=== PATIENT | female | born 1935 | race African-American/Black ===

== ENCOUNTER 2017-09-17 15:22 | Inpatient (IN) | payer MEDICARE, BC, OTHER ==
[~2017-09-17] VITALS: Ht 162.6 cm; Wt 65.8 kg
[~2017-09-17 15:22] MED LIST: AMLO1CAP58 PO; ASPI-1159 PO; ATEN50TA PO; CLOP75TA33 PO; CYAN250010 PO; DOCU-150 PO; ERGO400C PO; FERR-43 PO; GABA-531 PO; OMEP20CA10 PO; TRAM50TA3 PO
[2017-09-17 17:15] LABS: BASOPHILS % 0.6 % (0.0-2.0); EOSINOPHILS % 2.2 % (0.0-5.0); HEMATOCRIT. 37.9 % (36.0-48.0); HEMOGLOBIN. 12.7 g/dL (12.0-16.0); LYMPHOCYTES % 34.2 % (20.0-50.0); MEAN CORPUSCULAR HEMOGLOBIN 24.7 pg (28.0-32.0); MEAN CORPUSCULAR VOLUME 73.7 fL (81.0-99.0); MEAN PLATELET VOLUME 9.4 fl (7.4-10.4); MONOCYTES % 12.8 % (2.0-8.0); NEUTROPHILS % 50.2 % (40.0-76.0); PLATELET 215 x1000/uL (130-400); RED BLOOD CELL COUNT 5.14 mill/uL (4.2-5.4); RED CELL DISTRIBUTION WIDTH 15.4 % (11.6-14.6)
[2017-09-17 17:17] LABS: CLARITY URINE CLEAR (CLEAR); COLOR URINE YELLOW (YELLOW); GLUCOSE URINE NEGATIVE (NEGATIVE); KETONES URINE NEGATIVE (NEGATIVE); LEUKOCYTE ESTERASE URINE NEGATIVE (NEGATIVE); NITRITE URINE NEGATIVE (NEGATIVE); OCCULT BLOOD URINE NEGATIVE (NEGATIVE); PROTEIN URINE NEGATIVE (NEGATIVE); SPECIFIC GRAVITY URINE 1.009 (1.005-1.030); UROBILINOGEN URINE 0.2 E.U./dL (0.2-1.0)
[2017-09-17 17:20] LABS: PROTHROMBIN TIME 10.7 sec (9.4-11.6)
[2017-09-17 17:23] LABS: AMMONIA 18 uMol/L (<32)
[2017-09-17 17:24] LABS: CHLORIDE 88 mEq/L (98-107)
[2017-09-17 17:32] LABS: CARBON DIOXIDE 29 mEq/L (21-32); CREATINE KINASE 79 IU/L (26-192); TROPONIN I < 0.02 ng/mL (0.00-0.04)
[2017-09-17] MEDS ORDERED: SODIUM CHLORIDE 0.9% 250 ML IV ONE (19:34)
[2017-09-17] MEDS ORDERED: ONDANSETRON HCL 4MG/2ML VIAL IV ONE (19:45)
[2017-09-17] MEDS ORDERED: POTASSIUM CHLORIDE 20MEQ TABLET SR PO ONE (19:45)
[2017-09-17] MEDS ORDERED: CLONIDINE 0.2MG TABLET PO ONE (19:45)
[2017-09-17 22:00] VITALS: BP 179/96
[2017-09-17] MEDS ORDERED: MAGNESIUM/ALUMINUM HYDROXIDE/SIMETHICONE 30ML UDC PO PRN (22:00)
[2017-09-17] MEDS ORDERED: ACETAMINOPHEN 650MG/20.3ML UDC GT PRN (22:00)
[2017-09-17] MEDS ORDERED: DOCUSATE SODIUM 100MG CAPSULE PO PRN (22:00)
[2017-09-17] MEDS ORDERED: ONDANSETRON HCL 4MG/2ML VIAL IV PRN (22:00)
[2017-09-17 22:30] VITALS: BP 117/75
[2017-09-17] MEDS ORDERED: TRAV2.5D EACHEYE (22:58)
[2017-09-17] MEDS: SODIUM CHLORIDE 0.9% INJ 3ML FLUSH IVF SCH (23:04)
[2017-09-18] VITALS: BP 93/58
[2017-09-18 04:00] VITALS: BP 97/59
[2017-09-18] MEDS: SODIUM CHLORIDE 0.9% INJ 3ML FLUSH IVF SCH ×3 (05:46→20:38)
[2017-09-18 07:13] LABS: CHLORIDE 95 mEq/L (98-107)
[2017-09-18 07:29] LABS: CARBON DIOXIDE 24 mEq/L (21-32); HDL CHOLESTEROL 43 mg/dL (40-59); LDL CHOLESTEROL 150 mg/dL (5-100); TROPONIN I < 0.02 ng/mL (0.00-0.04)
[2017-09-18 08:00] VITALS: BP 102/68
[2017-09-18] MEDS: METOPROLOL TARTRATE 25MG TABLET PO SCH ×2 (08:23→20:39)
[2017-09-18 08:51] LABS: HEMATOCRIT. 36.5 % (36.0-48.0); HEMOGLOBIN. 12.1 g/dL (12.0-16.0); MEAN CORPUSCULAR HEMOGLOBIN 24.4 pg (28.0-32.0); MEAN CORPUSCULAR VOLUME 73.5 fL (81.0-99.0); MEAN PLATELET VOLUME 9.1 fl (7.4-10.4); PLATELET 187 x1000/uL (130-400); RED BLOOD CELL COUNT 4.96 mill/uL (4.2-5.4); RED CELL DISTRIBUTION WIDTH 15.6 % (11.6-14.6)
[2017-09-18] MEDS ORDERED: ENOXAPARIN 40MG/0.4ML SYR SUBCUT SCH (09:00)
[2017-09-18] MEDS ORDERED: CLOPIDOGREL 75MG TABLET PO SCH (09:00)
[2017-09-18] MEDS ORDERED: CHOLECALCIFEROL (D3) 1000 UNIT TABLET PO SCH (09:00)
[2017-09-18] MEDS ORDERED: CYANOCOBALAMIN 1000MCG/ML VIAL IM SCH (09:00)
[2017-09-18] MEDS ORDERED: ASPIRIN 81MG TABLET PO SCH (09:00)
[2017-09-18] MEDS ORDERED: LOSARTAN POTASSIUM 50 MG TABLET PO SCH (09:00)
[2017-09-18] MEDS: DOCUSATE SODIUM 100MG CAPSULE PO SCH ×2 (09:03→17:26)
[2017-09-18] MEDS ORDERED: POTASSIUM CHLORIDE INJ 10 MEQ in DEXT 5%/0.9% NACL 1,000 ML IV SCH (11:30)
[2017-09-18 12:00] VITALS: BP 105/57
[2017-09-18 16:00] VITALS: BP 128/76
[2017-09-18] MEDS ORDERED: MEDICATION NOT ON FORMULARY EA (Travoprost (Travatan Z) 1 DROP) EACHEYE SCH (17:00)
[2017-09-18 20:04] VITALS: BP 144/87
[2017-09-18 20:18] LABS: PLATELET ESTIMATE NORMAL
[2017-09-18] MEDS ORDERED: ATORVASTATIN CALCIUM 40MG TABLET PO SCH (21:00)
[2017-09-18] MEDS ORDERED: LATANOPROST 0.005% OPHTH DROPS 2.5ML OP SCH (21:00)
[2017-09-19 00:08] VITALS: BP 112/62
[2017-09-19 08:00] VITALS: BP 107/61
[2017-09-19 09:53] LABS: BASOPHILS % 0.4 % (0.0-2.0); EOSINOPHILS % 1.7 % (0.0-5.0); HEMATOCRIT. 37.3 % (36.0-48.0); HEMOGLOBIN. 12.3 g/dL (12.0-16.0); LYMPHOCYTES % 36.4 % (20.0-50.0); MEAN CORPUSCULAR HEMOGLOBIN 24.3 pg (28.0-32.0); MEAN CORPUSCULAR VOLUME 73.8 fL (81.0-99.0); MEAN PLATELET VOLUME 9.5 fl (7.4-10.4); MONOCYTES % 13.3 % (2.0-8.0); NEUTROPHILS % 48.2 % (40.0-76.0); PLATELET 190 x1000/uL (130-400); RED BLOOD CELL COUNT 5.05 mill/uL (4.2-5.4); RED CELL DISTRIBUTION WIDTH 15.5 % (11.6-14.6)
[2017-09-19 10:47] LABS: CARBON DIOXIDE 28 mEq/L (21-32); CHLORIDE 102 mEq/L (98-107)
[2017-09-19] MEDS ORDERED: ATEN-42 PO (11:49)
[2017-09-19 11:50] VITALS: BP 130/81
[2017-09-19 12:00] VITALS: BP 130/81
[2017-09-20] MEDS ORDERED: LOSARTAN POTASSIUM 25 MG TABLET PO SCH (09:00)
[2017-09-21 17:12] LABS: 25-HYDROXY VITAMIN D3 38 ng/mL (.)
== END 2017-09-19 14:36 | disposition home or self-care (01) | DRG 69 ==
LOC: ER 16:17 → 7WST 19:25 → ENRESERV 19:51
PROVIDERS: ADMIT Specialist; ATTEND Specialist
DX: G45.9 Transient cerebral ischemic attack, unspecified (principal); E87.1 Hypo-osmolality and hyponatremia; E78.5 Hyperlipidemia, unspecified; E87.6 Hypokalemia; G44.209 Tension-type headache, unspecified, not intractable; I10 Essential (primary) hypertension; I99.8 Other disorder of circulatory system; M79.7 Fibromyalgia; Z86.73 Personal history of transient ischemic attack (TIA), and cerebral infarction without residual deficits; Z88.8 Allergy status to other drugs, medicaments and biological substances
CPT/HCPCS: 36415; 70450; 70544; 70553; 71010; 80048; 80053; 80061; 81003; 82140; 82306; 82550; 83735; 83880; 84443; 84484; 85025; 85610; 93005; 93306; 93970; 96374; 97162; 99285; J2405; J3480; J7042; J7050

== ENCOUNTER 2018-02-14 18:40 | Emergency (ER) | payer MEDICARE, BC, OTHER ==
[~2018-02-14] VITALS: Ht 162.6 cm; Wt 68.5 kg
[~2018-02-14 18:40] MED LIST changes: +ATEN-42 PO; -ATEN50TA PO; +TRAV2.5D EACHEYE
[2018-02-14] MEDS ORDERED: DIPHENHYDRAMINE 25MG CAPSULE PO ONE (20:45)
[2018-02-14 22:02] VITALS: BP 175/99
== END 2018-02-14 22:03 | disposition home or self-care (01) ==
LOC: ER 20:52
DX: T78.40XA Allergy, unspecified, initial encounter (principal); I10 Essential (primary) hypertension; Z88.8 Allergy status to other drugs, medicaments and biological substances; Z79.82 Long term (current) use of aspirin; Z79.01 Long term (current) use of anticoagulants; X58.XXXA Exposure to other specified factors, initial encounter
CPT/HCPCS: 99283; Q0163